=== PATIENT | female | born 1950 ===

== ENCOUNTER → 2021-07-13 | Outpatient (CLI) | payer MEDICARE, OTHER ==
--- NOTE | 2021-07-13 12:43 | RAD ---
US ABDOMEN COMPLETE History: Reason: ABNORMAL RESULTS OF LIVER FUNCTION TESTS / Spl. Instructions: / History: Comparison: None. Technique: Sonographic examination of the abdomen was performed and multiple grayscale and color Dopp ler static images were obtained. Findings: Liver demonstrates normal echogenicity. The liver measures 14.6 cm. Portal flow is patent. Prior cholecystectomy. Common bile duct measures 6 mm in diameter. Visualized pancreas unremarkable. The right kidney measures 11.3 x 4.6 x 5.6 cm. Mild hydronephrosis. The left kidney measures 11.0 x 3.6 x 5.2 cm. Minimal hydronephrosis. Hyperechoic left mid renal lesi on measures 1.2 x 0.7 cm. The spleen measures 10.8 cm. Calcific granulomas within the spleen. Visualized portions of the abdominal aorta and IVC are normal. IMPRESSION: 1. Bilateral hydronephrosis, right greater than left. 2. Hyperechoic left renal lesion, may represent angiomyolipoma. Persistent clinical concern, recomme nd CT or MRI to further assess. 3. Prior cholecystectomy. Electronically signed by: Kevin Somers DO (07/13/2021 12:40 PM) [id number]
== END ==
LOC: US 09:47
PROVIDERS: ATTEND Family Medicine
DX: R94.5 Abnormal results of liver function studies (principal); N13.30 Unspecified hydronephrosis; Z90.49 Acquired absence of other specified parts of digestive tract
CPT/HCPCS: 76700

== ENCOUNTER → 2021-07-16 | Outpatient (CLI) | payer MEDICARE, OTHER ==
--- NOTE | 2021-07-20 14:57 | RAD ---
INDICATION: 70 years of age asymptomatic female patient presents for screening mammography. Personal history of breast cancer. Family history of breast cancer in paternal aunt age 85. TECHNIQUE: Full field craniocaudal and mediolateral oblique images of both breasts were obtained usi ng digital technique with tomosynthesis and also analyzed with computer-aided detection software. COMPARISON: Prior mammographic imaging dating back to 06/08/2007. BREAST COMPOSITION: Category B: There are scattered fibroglandular densities. FINDINGS: No suspicious masses, microcalcifications or architectural distortion is present to suggest malignanc y in either breast. Scattered benign vascular and nonvascular calcifications. The visualized axillae are unremarkable. IMPRESSION: No mammographic evidence of malignancy. RECOMMENDATION: Annual screening mammography is recommended, unless clinically indicated sooner based on symptoms or change in physical exam. BIRADS 2: BENIGN This study was interpreted with the benefit of Computerized Aided Detection (CAD). Patient information is entered into the reminder system with a target due date for the next screening mammogram. Mammography is the most sensitive method for finding small breast cancers, but it does not detect the m all and is not a substitute for careful clinical examination. A negative mammogram does not negate a clinically suspicious finding and should not result in delay in biopsying a clinically suspicious a bnormality. "Our facility is accredited by the [employer] Mammography Program." Electronically signed by: Donovan Chamorro DO (07/20/2021 2:54 PM) [id number]
== END ==
LOC: MAMMO 11:18 → EDUNIT# 11:30
PROVIDERS: ATTEND Family Medicine
DX: Z12.31 Encounter for screening mammogram for malignant neoplasm of breast (principal)
CPT/HCPCS: 77063; 77067

== ENCOUNTER → 2021-07-24 | Outpatient (CLI) | payer MEDICARE, OTHER ==
[~2021-07-24] MED LIST: IOHEXOL 300 MG/ML 75 ML VIAL. IV ONE
--- NOTE | 2021-07-24 15:32 | RAD ---
CT abdomen pelvis with and without contrast dated 07/24/2021. COMPARISON: Ultrasound dated 07/13/2021 INDICATION: Evaluate left renal lesion seen on recent ultrasound. TECHNIQUE: Contiguous axial imaging of the abdomen pelvis performed with and without the administration of 100 c c [id number]. One or more of the following individualized dose reduction techniques were utilized for this examinat ion: 1. Automated exposure control 2. Adjustment of the mA and/or kV according to patient size 3. Use of iterative reconstruction technique FINDINGS: Limited images of lung bases show linear bands of increased density in the lower lobes, likely scar o r atelectasis. Heart size is upper limits of normal. No pleural or pericardial effusion. Liver and spleen are homogeneous. No apparent hepatic mass. Intrahepatic and extra hepatic biliary tr ee are within normal limits in caliber for age. The gallbladder surgically absent. Spleen is normal in size. Pancreas, adrenal glands unremarkable. There is a 3 mm calcific stone at th e lower pole right kidney with prominence of the right renal pelvis. No ureteral stone or hydronephro sis. Small nodular focus of fat density at the upper to midpole left kidney laterally measures up to 5 mm which may or may not correlate with ultrasound findings. No solid mass or enhancing mass at the left kidney. Left renal vein is patent. Unopacified GI tract normal in caliber and contour. No bowel wall thickening. Scattered diverticula t hroughout the colon. No paracolonic inflammatory changes. No ascites or lymphadenopathy. Abdominal ao rta is normal in caliber. Images of pelvis show nondistended urinary bladder. Calcified fibroid uterus. No free fluid or lympha denopathy. Bone window show no acute finding. Multilevel spondylosis. IMPRESSION: 1. No suspicious enhancing renal mass. 2. There is a small focus of fat density at the mid upper pole left kidney laterally that may correla te with ultrasound findings, raising the question of a small angiomyolipoma. Given the discrepancy in measurements, a follow-up ultrasound is recommended in 6 months to ensure stability. 3. Fibroid uterus. 4. Electronically signed by: Randy Lara MD (07/24/2021 3:30 PM) [facility]
== END ==
LOC: CT 12:59
PROVIDERS: ATTEND Family Medicine
DX: N20.0 Calculus of kidney (principal); N28.9 Disorder of kidney and ureter, unspecified; D25.9 Leiomyoma of uterus, unspecified
CPT/HCPCS: 74178; Q9967

== ENCOUNTER → 2021-08-30 | Outpatient (CLI) | payer MEDICARE, OTHER ==
--- NOTE | 2021-08-30 17:05 | RAD ---
DXA BONE DENSITY AXIAL History: Reason: MENPAUSAL / Spl. Instructions: / History: Comparison: None. TECHNIQUE: Dual energy x-ray absorptiometry of the lumbar spine and right hip was performed. T-score of average bone mineral density based was calculated based on standard deviations above or below the expected young adult normal value. Diagnostic definitions were established by the [employer] z[employer]. FINDINGS: The average bone mineral density associated with L1-L4 is 0.985 g/cm^2, corresponding with a T-score of -1.6. The average total bone mineral density associated with right hip is 0.686 g/cm^2, corresponding with a T-score of -2.2. Right isolated femoral neck T score -2.6 Refer to the worksheets for full detail. IMPRESSION: 1. Osteoporosis. According to isolated right femoral neck T score. Average bone mineral density yiel ds a T-score of -2.5 or less. Fracture risk is high. Electronically signed by: Kevin Somers DO (08/30/2021 5:03 PM) [id number]
== END ==
LOC: DXRAD 12:37
PROVIDERS: ATTEND Family Medicine
DX: M81.0 Age-related osteoporosis without current pathological fracture (principal); N95.1 Menopausal and female climacteric states
CPT/HCPCS: 77080